=== PATIENT | female | born 2000 | race Caucasian/White ===

== ENCOUNTER 2021-01-07 03:43 | Emergency (ER) | payer MEDICAID ==
[~2021-01-07] VITALS: Ht 154.9 cm; Wt 52.3 kg
[2021-01-07 03:47] VITALS: BP 116/72
[2021-01-07] MEDS ORDERED: triamcinolone acetonide 40mg/ml inj IM ONE (04:05)
[2021-01-07] MEDS ORDERED: PRED20TA PO (04:08)
== END 2021-01-07 04:35 | disposition home or self-care (01) ==
LOC: ER 03:43
DX: L23.7 Allergic contact dermatitis due to plants, except food (principal); F17.200 Nicotine dependence, unspecified, uncomplicated; Z72.89 Other problems related to lifestyle; Z79.899 Other long term (current) drug therapy
CPT/HCPCS: 96372; 99283; J3301

== ENCOUNTER 2022-06-09 00:46 | Emergency (ER) | payer MEDICAID ==
[~2022-06-09] VITALS: Ht 157.5 cm; Wt 56.8 kg
[2022-06-09 01:04] VITALS: BP 119/77
== END 2022-06-09 03:54 | disposition left against medical advice (07) ==
LOC: ER 00:47
DX: M79.671 Pain in right foot (principal); Z53.21 Procedure and treatment not carried out due to patient leaving prior to being seen by health care provider

== ENCOUNTER 2024-01-20 22:19 | Emergency (ER) | payer MEDICAID ==
[~2024-01-20] VITALS: Ht 152.4 cm; Wt 61.4 kg
[2024-01-20 22:39] VITALS: PULSE 113
[2024-01-20] MEDS ORDERED: HYDR-3965 PO (22:44)
[2024-01-20] MEDS ORDERED: AMOX-117 PO (22:44)
[2024-01-20] MEDS: HYDROcodone/acetaminophen 10/325mg tab PO ONE (22:59)
[2024-01-20] MEDS: ondansetron 4mg rapidly disintigrating tab PO ONE (23:00)
[2024-01-20 23:02] VITALS: BP 134/86; RESP 18; TEMP 98; O2SAT 97
== END 2024-01-20 23:06 | disposition home or self-care (01) ==
LOC: ER 22:19
DX: S02.5XXA Fracture of tooth (traumatic), initial encounter for closed fracture (principal); K04.7 Periapical abscess without sinus; X58.XXXA Exposure to other specified factors, initial encounter; Y93.89 Activity, other specified; Y92.89 Other specified places as the place of occurrence of the external cause; Y99.8 Other external cause status
CPT/HCPCS: 99283

== ENCOUNTER 2024-03-08 01:49 | Emergency (ER) | payer MEDICAID ==
[~2024-03-08] VITALS: Ht 152.4 cm; Wt 59.1 kg
[2024-03-08] MEDS ORDERED: CEPH-585 PO (02:14)
[2024-03-08] MEDS ORDERED: SULF1TAB49 PO (02:14)
[2024-03-08] MEDS: sulfamethoxazole/trimethoprim DS (800/160mg) tablet PO ONE (02:23)
[2024-03-08] MEDS: cephalexin 250mg capsule PO ONE (02:23)
[2024-03-08 02:26] VITALS: BP 122/78; PULSE 18; RESP 18; TEMP 98.4; O2SAT 100
== END 2024-03-08 02:28 | disposition home or self-care (01) ==
LOC: ER 01:50
DX: L02.414 Cutaneous abscess of left upper limb (principal); Z72.89 Other problems related to lifestyle
CPT/HCPCS: 99283

== ENCOUNTER 2024-03-12 17:56 | Emergency (ER) | payer MEDICAID ==
[~2024-03-12] VITALS: Ht 152.4 cm; Wt 63.6 kg
[~2024-03-12 17:56] MED LIST: CEPH-585 PO; SULF1TAB49 PO
[2024-03-12 19:08] LABS: BASOPHILS % (AUTO) 0.3 % (0-1); EOSINOPHILS % (AUTO) 0.2 % (0-6); HEMATOCRIT 36.6 % (35.0-45.0); HEMOGLOBIN 12.1 g/dl (12.0-16.0); LYMPHOCYTES # (AUTO) 1.8 X10'3 (1.1-4.8); LYMPHOCYTES % (AUTO) 29.1 % (21-51); MEAN CORPUSCULAR HEMOGLOBIN 28.8 PG (27.0-31.0); MEAN CORPUSCULAR HGB CONC 32.9 g/dL (33.0-36.5); MEAN CORPUSCULAR VOLUME 87.6 FL (78-98); MEAN PLATELET VOLUME 9.6 FL (7.4-10.4); MONOCYTES # (AUTO) 0.2 X10'3 (0-0.9); MONOCYTES % (AUTO) 3.7 % (2-12); NEUTROPHILS # (AUTO) 4.2 X10'3 (1.8-7.7); NEUTROPHILS % (AUTO) 66.7 % (42-75); PLATELET COUNT 277 X10'3 (140-440); RED BLOOD COUNT 4.18 X10'6 (4.20-5.60); RED CELL DISTRIBUTION WIDTH 13.3 % (11.5-14.5); WHITE BLOOD COUNT 6.3 X10'3 (4.5-11.0)
[2024-03-12 19:13] VITALS: TEMP 98.2
[2024-03-12 19:17] LABS: ALANINE AMINOTRANSFERASE 27 U/L (12-78); ALBUMIN 3.7 G/DL (3.4-5.0); ALBUMIN/GLOBULIN RATIO 0.8 (1.1-1.5); ALKALINE PHOSPHATASE 84 IU/L (46-116); ANION GAP 6 (8-16); ASPARTATE AMINO TRANSFERASE 15 U/L (10-37); BILIRUBIN,TOTAL 0.2 MG/DL (0.1-1.0); BLOOD UREA NITROGEN 10 MG/DL (7-18); BUN/CREATININE RATIO 14.9 (10.0-20.0); CALCIUM 8.8 MG/DL (8.5-10.1); CHLORIDE 104 MMOL/L (99-107); CREATININE 0.67 MG/DL (0.40-0.90); GLUCOSE 117 MG/DL (70-104); LIPASE 17 U/L (16-77); POTASSIUM 3.8 MMOL/L (3.5-5.1); SODIUM 137 MMOL/L (135-145); TOTAL CARBON DIOXIDE 26.9 MMOL/L (24-32); TOTAL PROTEIN 8.6 G/DL (6.4-8.2); eCRCL 92 ML/MIN; eGFR > 90 ML/MIN
[2024-03-12 19:19] LABS: BILIRUBIN,URINE NEGATIVE (Neg); CLARITY,URINE CLEAR (Clear); COLOR,URINE YELLOW (Yellow); GLUCOSE, URINE NEGATIVE (Neg); KETONES,URINE NEGATIVE (Neg); LEUKOCYTE ESTERASE ,URINE NEGATIVE (Neg); NITRITES, URINE NEGATIVE (Neg); OCCULT BLOOD,URINE NEGATIVE (Neg); PROTEIN,URINE NEGATIVE (Neg); UROBILINOGEN,URINE 0.2 E.U/dL (0.2-1.0)
[2024-03-12] MEDS: mag hydrox/Alum hydrox/simeth 30ml oral suspension PO ONE (19:21)
[2024-03-12] MEDS: LIDOcaine 2% Viscous 15ml cup MM PRN (19:21)
[2024-03-12] MEDS: dicyclomine 10 MG capsule PO ONE (19:21)
[2024-03-12 19:22] LABS: UA COLLECTION TYPE CLN CATCH MIDSTREAM
[2024-03-12 19:38] LABS: URINE HCG NEGATIVE (NEG)
[2024-03-12] MEDS ORDERED: DICY20TA17 PO (20:21)
[2024-03-12] MEDS ORDERED: OMEP40CA21 PO (20:21)
[2024-03-12 20:45] VITALS: BP 109/62; PULSE 80; RESP 16; O2SAT 99
== END 2024-03-12 20:47 | disposition home or self-care (01) ==
LOC: ER 17:57
DX: R10.13 Epigastric pain (principal); R11.2 Nausea with vomiting, unspecified; Z79.2 Long term (current) use of antibiotics; Z79.899 Other long term (current) drug therapy; Z72.89 Other problems related to lifestyle
CPT/HCPCS: 36415; 76700; 80053; 81003; 81025; 83690; 85025; 99284

== ENCOUNTER 2025-04-28 03:01 | Emergency (ER) | payer SELFPAY ==
[~2025-04-28] VITALS: Ht 152.4 cm; Wt 89.7 kg
[~2025-04-28 03:01] MED LIST changes: -CEPH-585 PO; +DICY20TA17 PO; -SULF1TAB49 PO
[2025-04-28 03:09] VITALS: BP 124/82; PULSE 110; RESP 15; TEMP 96.9; O2SAT 97
[2025-04-28] MEDS ORDERED: HYDR-3965 PO (03:20)
[2025-04-28] MEDS ORDERED: NAPR-1166 PO (03:20)
[2025-04-28] MEDS ORDERED: CLIN60LO2 TOP (03:20)
[2025-04-28] MEDS ORDERED: CLIN-232 PO (03:20)
--- NOTE | 2025-04-28 03:20 | Physician Documentation ---
History of Present Illness ~ Chief Complaint: Abscess Stated Complaint: ARM ABCESS Time Seen by MD: 03:14 Primary Medical Doctor: none HPI This is a 25-year-old female with a prior history of abscesses who presents for evaluation of painful redness, swelling, and multiple areas of drainage in her left axilla. She actually has been seen for this, received amoxicillin, it did not seem to have improved her symptoms. She reports significant pain, redness, hot to touch she sensation in her left armpit, worse with a any range of motion. No particular palliating factors. Attempted to treat with [id number] medications without much success. Denies any other symptoms such as fever, chills, nausea, vomiting, diarrhea, abdominal pain or chest pain. 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 Tetanus Within 5 Years: Yes Medication Reconciliation Allergies: Coded Allergies: No Known Allergies (Unverified , 04/28/25) Scheduled Dicyclomine HCl (Dicyclomine HCl), 1 TAB PO Q6H Past Medical History Past Medical History: No Pertinent History Past Surgical History: no surgical history Alcohol Use: Occasionally Lives with: Family Lives In: Home Review of Systems ROS 10 point review of systems was performed and unless noted above in HPI is negative for acute process/complaint. Physical Exam Vital Signs: Temperature: 96.9, Source: Temporal, Heart Rate: 110, Respiratory Rate: 15, BP: 124/82, Pulse Oximetry: 97, Weight: 89.650 Physical Exam Physical examination: GENERAL: Awake, alert, oriented, GCS 15, no apparent distress, non-toxic appearing, answers questions, follows commands appropriately. HEENT: Atraumatic, normocephalic, pupils equal, extraocular muscles intact Active gross movements, sclerae anicteric, mucus membranes moist, no stridor. NECK: Midline, no JVD CARDIOVASCULAR: Good skin perfusion without evidence of pallor, mottling. Tachycardic and regular. No murmur. PULMONARY: Nonlabored, symmetric chest rise, no audible wheezing, no accessory muscle use, no respiratory distress, speaking in full sentences. GASTROINTESTINAL: Not distended. NEUROLOGIC: Lucid with normal mental status. Normal facial symmetry. Moves all extremities symmetrically and with purpose. No truncal ataxia. Speech is fluid without evidence of dysarthria or aphasia, no focal deficits appreciated. EXTREMITIES: Acute deformities Skin: warm, dry PSYCHIATRIC: Normal affect, normal insight, normal concentration. Focused exam: [Left axillae has significant area of erythema, induration, several areas of purulent discharge, tender to palpation exquisitely. Neurovascularly intact distally. Does not appear to be spreading to the talus spends or the breast itself.] Progress Results/Orders Results/Orders Vital Signs 04/28/25 03:09 Temp 96.9 Pulse 110 Resp 15 B/P (MAP) 124/82 Pulse Ox 97 Medical Decision Making Findings Facility Status: ED Holds, RME process The plan was discussed with the patient, who demonstrates clear understanding of the plan and is in agreement with the plan unless otherwise noted in the chart. All questions have been answered, all concerns were addressed unless otherwise documented. I was available throughout their ED stay for frequent reassessment and questi ons. Differential Diagnoses (considered and possible or likely): [Most likely represe nts hydradenitis suppurativa, less likely cellulitis, abscess, no evidence of necrotizing infection, unlikely to be cancer] ??Differential Diagnoses (considered and unlikely, not requiring evaluation currently): [See above] MDM Data Please see [facility] for the following: Independent Historians and external Records Review. Historian: [Patient] Independent Historians: ?[Record review] Medication Management: [Reviewed medication list] Social History and determinants: [Reviewed] Please see the body of the note for the following: Any independent interpretations of ECG, imaging studies. All vitals signs/haemodynamics, ordered tests were independently reviewed and interpreted by myself. Nursing triage complaint and vitals reviewed, additional nursing notes were reviewed as available and I agree unless otherwise noted or documented in contradiction in the chart Vital Signs: Independently reviewed Labs: Independently interpreted Imaging: Independently interpreted Old Medical Records: Independently reviewed, see HPI for relevant summary and information Pulse Oximetry: [100%] interpreted as [normal on room air] by me Additionally notably showing: [Tachycardic, normotensive, no evidence of re spiratory distress. Tachycardia improved with the pain management.] Tests considered but not ordered include: [Hematologic workup and imaging has been considered but does not appear to be necessary given clinical nature of diagnosis] Social Determinants of Health Impact: Patient was evaluated in [facility], [facility] [place] to healthcare due to below par ratio of patient to medical providers. [] Comorbid Conditions Impacting Present Evaluation and Care/Treatment: [None reported] Management Discussions with other Healthcare Providers: [None] Treatment and Disposition Medication Management (Given or considered): [Pain management, initial dose of antibiotics]. See EMR for details Consideration for Hospitalization/Escalation/Deescalation of Care: Admission for observation has been considered, [however the patient is able to tolerate p.o., their symptoms are controlled, they are able to rely on oral medications, and their chief complaint/diagnosis can be managed on outpatient basis.] ?ED Course:?[No clinical deterioration] ?Shared decision making:?[Patient is hemodynamically stable for discharge home with follow with their primary care provider. [ ] Specific and cautious return precautions provided and discussed with full understanding. Any incidental findings were also discussed and follow up recommendations given. [] All questions answered. Patient/family were able to verbalize back return precautions. Patient/family agree to plan. Copies of imaging and laboratory studies were provided.] Code status:?FULL Please see the full Electronic Medical Record for full details of nursing documentation, medications list, other records of complete past medical history and conditions, vital signs, laboratory studies, and any radiologic study interpretations by radiologists. Portions of this note were completed using [employer] dictation software and as a result there may exist minor errors in spelling. I have reviewed elements of past family and social history and agree a s included in note. Departure Disposition: HOME / SELF CARE / HOMELESS Impression: Primary Impression: Hidradenitis suppurativa of left axilla Condition: Stable Discharge Instructions: Hidradenitis Suppurativa Referrals: NO PRIMARY CARE PROVIDER (PCP) Prescriptions Clindamycin Phosphate (Clindamycin Phosphate) 1 % Lotion 1 APPLIC TOP Q12H for 30 Days, #60 ML 0 Refills apply to affected area(s) Prov: LUDWIN MARTE DO 04/28/25 Clindamycin HCl (Clindamycin HCl) 150 Mg Capsule 3 CAP PO Q8H for 10 Days, #90 CAP Prov: LUDWIN MARTE DO 04/28/25 Naproxen (Naproxen) 375 Mg Tablet 1 TAB PO Q12H for pain for 30 Days, #60 TAB 0 Refills with food Prov: LUDWIN MARTE DO 04/28/25 Hydrocodone Bit/Acetaminophen 5/325 MG ([place] 5/325 MG) 5 Mg/325 Mg Tablet 1 TAB PO Q6H PRN for pain, #14 TAB Prov: LUDWIN MARTE DO 04/28/25 Education Educated: Patient Educated regarding: diagnosis, treatment, prognosis, need for follow up Signature Scribe Signature: No scribe Attestation: Date: Apr 28, 2025 Time: 03:21 This note accurately reflects clinical decisions, work performed by myself, DO ROSANNA Santos NICHOLAS M DO Apr 28, 2025 03:20
[2025-04-28] MEDS: ketorolac trometh 30MG/ML vial 30 MG/ML VIAL IM ONE (03:35)
[2025-04-28] MEDS: HYDROcodone/acetaminophen 5mg/325mg tablet PO ONE (03:35)
== END 2025-04-28 03:39 | disposition home or self-care (01) ==
LOC: ER 03:02
DX: L73.2 Hidradenitis suppurativa (principal); Z72.89 Other problems related to lifestyle; Z79.899 Other long term (current) drug therapy
CPT/HCPCS: 96372; 99283; J1885